=== PATIENT | male | born 1940 | race Caucasian/White ===

== ENCOUNTER 2021-10-12 15:41 | Inpatient (IN) ==
[2021-10-13] MEDS ORDERED: Ondansetron ODT 4 MG TAB.RAPDIS SL PRN (17:43)
[2021-10-13] MEDS: Acetaminophen 325 MG TABLET PO PRN (22:27)
[2021-10-13] MEDS: Melatonin 3 MG TABLET PO SCH (22:28)
[2021-10-13] MEDS: Metoprolol XL (24 HR) Succ 50 MG TAB.ER.24H PO SCH (22:29)
[2021-10-13] MEDS: Apixaban 5 MG TABLET PO SCH (22:33)
[2021-10-14 06:06] LABS: Basophils % 0.3 %; Eosinophils # 0.2 K/mcL (0.0-0.6); Eosinophils % 1.4 %; Hematocrit 33.4 % (37.5-50.1); Hemoglobin 10.8 g/dL (12.9-16.9); Immature Granulocytes % 2.4 % (0-4); Lymphocytes # 0.9 K/mcL (0.6-4.6); Lymphocytes % 7.6 %; Mean Corpuscular HGB Conc 32.3 g/dL (31.6-35.5); Mean Corpuscular Hemoglobin 30.7 pg (28.0-33.3); Mean Corpuscular Volume 94.9 fL (83.0-100.0); Mean Platelet Volume 8.9 fL (9.4-12.4); Monocytes # 0.7 K/mcL (0.0-1.3); Neutrophils # 9.7 K/mcL (1.6-8.9); Platelet Count 645 K/mcL (140-400); Red Blood Count 3.52 M/mcL (4.19-5.50); Red Cell Distribution Width 14.3 % (11.5-14.5); Segmented Neutrophils % 82.3 %; White Blood Count 11.8 K/mcL (4.3-11.1)
[2021-10-14 06:30] LABS: BUN/Creatinine Ratio 17 (6-26); Blood Urea Nitrogen 16 mg/dL (8-23); Calcium 9.4 mg/dL (8.6-10.3); Carbon Dioxide 29 mEq/L (23-29); Chloride 101 mEq/L (98-107); Glucose 115 mg/dL (70-105); Osmolality,Calculated 282 (280-300); Potassium 3.7 mEq/L (3.5-5.1); Sodium 135 mEq/L (136-145); eGFR For African Americans > 60 (> 60); eGFR For Non-African Americans > 60 (> 60)
[2021-10-14] MEDS: Acetaminophen 325 MG TABLET PO PRN ×2 (09:00→20:27)
[2021-10-14] MEDS: hydroCHLOROthiazide 25 MG TABLET PO SCH (09:00)
[2021-10-14] MEDS: Metoprolol XL (24 HR) Succ 50 MG TAB.ER.24H PO SCH ×2 (09:00→20:26)
[2021-10-14] MEDS: amLODIPine 5 MG TABLET PO SCH (09:00)
[2021-10-14] MEDS: Cholecalciferol (D-3) 1,000 UNIT (25MCG) TABLET PO SCH (09:01)
[2021-10-14] MEDS: Apixaban 5 MG TABLET PO SCH ×2 (09:01→20:26)
[2021-10-14] MEDS: *HR* Digoxin 0.125 MG TABLET PO SCH (09:01)
[2021-10-14] MEDS: polyethylene glycoL 3350 17 GM POWD.PACK PO SCH ×2 (09:02→18:38)
[2021-10-14] MEDS ORDERED: *HR* HYDROcodone/Acet 5/325 mg TABLET PO PRN ×2 (12:06→12:08)
[2021-10-14] MEDS: Melatonin 3 MG TABLET PO SCH (20:27)
[2021-10-15] MEDS: Metoprolol XL (24 HR) Succ 50 MG TAB.ER.24H PO SCH ×2 (07:59→19:30)
[2021-10-15] MEDS: amLODIPine 5 MG TABLET PO SCH (08:00)
[2021-10-15] MEDS: Apixaban 5 MG TABLET PO SCH ×2 (08:00→19:30)
[2021-10-15] MEDS: Cholecalciferol (D-3) 1,000 UNIT (25MCG) TABLET PO SCH (08:00)
[2021-10-15] MEDS: polyethylene glycoL 3350 17 GM POWD.PACK PO SCH (08:00)
[2021-10-15] MEDS: hydroCHLOROthiazide 25 MG TABLET PO SCH (08:00)
[2021-10-15] MEDS: *HR* Digoxin 0.125 MG TABLET PO SCH (08:00)
[2021-10-15] MEDS: Acetaminophen 325 MG TABLET PO PRN ×2 (14:41→21:38)
[2021-10-16 05:07] LABS: Basophils # 0.1 K/mcL (0.0-0.2); Basophils % 0.7 %; Eosinophils # 0.1 K/mcL (0.0-0.6); Eosinophils % 1.3 %; Hematocrit 33.6 % (37.5-50.1); Hemoglobin 10.8 g/dL (12.9-16.9); Lymphocytes % 9.6 %; Mean Corpuscular HGB Conc 32.1 g/dL (31.6-35.5); Mean Corpuscular Hemoglobin 30.3 pg (28.0-33.3); Mean Corpuscular Volume 94.1 fL (83.0-100.0); Mean Platelet Volume 8.9 fL (9.4-12.4); Monocytes # 0.8 K/mcL (0.0-1.3); Platelet Count 604 K/mcL (140-400); Red Blood Count 3.57 M/mcL (4.19-5.50); Red Cell Distribution Width 14.1 % (11.5-14.5); Segmented Neutrophils % 78.4 %; White Blood Count 10.2 K/mcL (4.3-11.1)
[2021-10-16 05:26] LABS: Alanine Aminotransferase 29 Units/L (7-52); Albumin 3.2 g/dL (3.5-5.7); Albumin/Globulin Ratio 1.2 (1.1-2.2); Alkaline Phosphatase 103 Units/L (34-104); Aspartate Amino Transferase 18 Units/L (13-39); BUN/Creatinine Ratio 18 (6-26); Bilirubin,Total 0.7 mg/dL (0.3-1.0); Blood Urea Nitrogen 15 mg/dL (8-23); Carbon Dioxide 31 mEq/L (23-29); Chloride 100 mEq/L (98-107); Globulin 2.7 g/dL (2.4-3.5); Glucose 112 mg/dL (70-105); Magnesium 1.7 mg/dL (1.6-2.6); Osmolality,Calculated 284 (280-300); Potassium 3.7 mEq/L (3.5-5.1); Sodium 136 mEq/L (136-145); Total Protein 5.9 g/dL (6.4-8.9); eGFR For African Americans > 60 (> 60); eGFR For Non-African Americans > 60 (> 60)
[2021-10-16] MEDS: Acetaminophen 325 MG TABLET PO PRN ×2 (05:27→19:42)
[2021-10-16] MEDS: Apixaban 5 MG TABLET PO SCH ×2 (08:22→19:41)
[2021-10-16] MEDS: amLODIPine 5 MG TABLET PO SCH (08:23)
[2021-10-16] MEDS: Cholecalciferol (D-3) 1,000 UNIT (25MCG) TABLET PO SCH (08:23)
[2021-10-16] MEDS: *HR* Digoxin 0.125 MG TABLET PO SCH (08:23)
[2021-10-16] MEDS: Metoprolol XL (24 HR) Succ 50 MG TAB.ER.24H PO SCH ×2 (08:23→19:42)
[2021-10-16] MEDS: polyethylene glycoL 3350 17 GM POWD.PACK PO SCH (08:24)
[2021-10-16] MEDS: hydroCHLOROthiazide 25 MG TABLET PO SCH (08:24)
[2021-10-17] MEDS: Metoprolol XL (24 HR) Succ 50 MG TAB.ER.24H PO SCH ×2 (08:02→21:02)
[2021-10-17] MEDS: hydroCHLOROthiazide 25 MG TABLET PO SCH (08:02)
[2021-10-17] MEDS: *HR* Digoxin 0.125 MG TABLET PO SCH (08:02)
[2021-10-17] MEDS: Apixaban 5 MG TABLET PO SCH ×2 (08:02→21:02)
[2021-10-17] MEDS: amLODIPine 5 MG TABLET PO SCH (08:02)
[2021-10-17] MEDS: Cholecalciferol (D-3) 1,000 UNIT (25MCG) TABLET PO SCH (08:02)
[2021-10-17] MEDS: Acetaminophen 325 MG TABLET PO PRN (08:03)
[2021-10-17] MEDS: polyethylene glycoL 3350 17 GM POWD.PACK PO SCH (08:06)
[2021-10-18] MEDS: *HR* Digoxin 0.125 MG TABLET PO SCH (07:59)
[2021-10-18] MEDS: Metoprolol XL (24 HR) Succ 50 MG TAB.ER.24H PO SCH ×2 (07:59→19:55)
[2021-10-18] MEDS: Cholecalciferol (D-3) 1,000 UNIT (25MCG) TABLET PO SCH (07:59)
[2021-10-18] MEDS: Apixaban 5 MG TABLET PO SCH ×2 (07:59→19:53)
[2021-10-18] MEDS: hydroCHLOROthiazide 25 MG TABLET PO SCH (07:59)
[2021-10-18] MEDS: Acetaminophen 325 MG TABLET PO PRN (08:00)
[2021-10-18] MEDS: polyethylene glycoL 3350 17 GM POWD.PACK PO SCH (08:50)
[2021-10-19] MEDS: Apixaban 5 MG TABLET PO SCH ×2 (08:01→20:21)
[2021-10-19] MEDS: *HR* Digoxin 0.125 MG TABLET PO SCH (08:02)
[2021-10-19] MEDS: Metoprolol XL (24 HR) Succ 50 MG TAB.ER.24H PO SCH ×2 (08:02→20:20)
[2021-10-19] MEDS: hydroCHLOROthiazide 25 MG TABLET PO SCH (08:02)
[2021-10-19] MEDS: Cholecalciferol (D-3) 1,000 UNIT (25MCG) TABLET PO SCH (08:02)
[2021-10-19] MEDS: polyethylene glycoL 3350 17 GM POWD.PACK PO SCH (09:11)
[2021-10-19] MEDS: Acetaminophen 325 MG TABLET PO PRN (20:24)
[2021-10-20] MEDS: Acetaminophen 325 MG TABLET PO PRN ×2 (05:26→10:27)
[2021-10-20] MEDS: Cholecalciferol (D-3) 1,000 UNIT (25MCG) TABLET PO SCH (08:05)
[2021-10-20] MEDS: Metoprolol XL (24 HR) Succ 50 MG TAB.ER.24H PO SCH ×2 (08:05→20:39)
[2021-10-20] MEDS: Apixaban 5 MG TABLET PO SCH ×2 (08:06→20:39)
[2021-10-20] MEDS: *HR* Digoxin 0.125 MG TABLET PO SCH (08:06)
[2021-10-20] MEDS: hydroCHLOROthiazide 25 MG TABLET PO SCH (08:06)
[2021-10-20] MEDS: polyethylene glycoL 3350 17 GM POWD.PACK PO SCH (08:06)
[2021-10-21 06:05] LABS: Basophils % 0.5 %; Eosinophils # 0.2 K/mcL (0.0-0.6); Eosinophils % 1.9 %; Hematocrit 32.9 % (37.5-50.1); Hemoglobin 10.8 g/dL (12.9-16.9); Immature Granulocytes % 0.9 % (0-4); Lymphocytes % 12.4 %; Mean Corpuscular HGB Conc 32.8 g/dL (31.6-35.5); Mean Corpuscular Hemoglobin 30.4 pg (28.0-33.3); Mean Corpuscular Volume 92.7 fL (83.0-100.0); Mean Platelet Volume 9.2 fL (9.4-12.4); Monocytes # 0.7 K/mcL (0.0-1.3); Monocytes % 9.3 %; Neutrophils # 5.9 K/mcL (1.6-8.9); Platelet Count 343 K/mcL (140-400); Red Blood Count 3.55 M/mcL (4.19-5.50); Red Cell Distribution Width 14.1 % (11.5-14.5); White Blood Count 7.8 K/mcL (4.3-11.1)
[2021-10-21 06:22] LABS: BUN/Creatinine Ratio 22 (6-26); Blood Urea Nitrogen 18 mg/dL (8-23); Calcium 8.9 mg/dL (8.6-10.3); Carbon Dioxide 31 mEq/L (23-29); Chloride 97 mEq/L (98-107); Glucose 110 mg/dL (70-105); Osmolality,Calculated 281 (280-300); Potassium 3.3 mEq/L (3.5-5.1); Sodium 134 mEq/L (136-145); eGFR For African Americans > 60 (> 60); eGFR For Non-African Americans > 60 (> 60)
[2021-10-21] MEDS: Cholecalciferol (D-3) 1,000 UNIT (25MCG) TABLET PO SCH (08:03)
[2021-10-21] MEDS: Metoprolol XL (24 HR) Succ 50 MG TAB.ER.24H PO SCH ×2 (08:03→20:43)
[2021-10-21] MEDS: polyethylene glycoL 3350 17 GM POWD.PACK PO SCH (08:04)
[2021-10-21] MEDS: hydroCHLOROthiazide 25 MG TABLET PO SCH (08:04)
[2021-10-21] MEDS: Apixaban 5 MG TABLET PO SCH ×2 (08:04→20:43)
[2021-10-21] MEDS: *HR* Digoxin 0.125 MG TABLET PO SCH (08:04)
[2021-10-21] MEDS: Acetaminophen 325 MG TABLET PO PRN (08:09)
[2021-10-22] MEDS: Acetaminophen 325 MG TABLET PO PRN ×2 (06:49→14:48)
[2021-10-22] MEDS: *HR* Digoxin 0.125 MG TABLET PO SCH (07:54)
[2021-10-22] MEDS: Metoprolol XL (24 HR) Succ 50 MG TAB.ER.24H PO SCH ×2 (07:54→20:18)
[2021-10-22] MEDS: Cholecalciferol (D-3) 1,000 UNIT (25MCG) TABLET PO SCH (07:54)
[2021-10-22] MEDS: Apixaban 5 MG TABLET PO SCH ×2 (07:55→20:18)
[2021-10-22] MEDS: hydroCHLOROthiazide 25 MG TABLET PO SCH (07:55)
[2021-10-22] MEDS: polyethylene glycoL 3350 17 GM POWD.PACK PO SCH (14:49)
[2021-10-22 20:25] VITALS: RESP 16
[2021-10-23] MEDS: Acetaminophen 325 MG TABLET PO PRN ×2 (02:53→15:20)
[2021-10-23 04:37] LABS: Basophils # 0.1 K/mcL (0.0-0.2); Basophils % 0.7 %; Eosinophils # 0.2 K/mcL (0.0-0.6); Eosinophils % 2.7 %; Hemoglobin 11.2 g/dL (12.9-16.9); Immature Granulocytes % 0.9 % (0-4); Lymphocytes # 0.8 K/mcL (0.6-4.6); Lymphocytes % 10.9 %; Mean Corpuscular HGB Conc 32.9 g/dL (31.6-35.5); Mean Corpuscular Hemoglobin 30.5 pg (28.0-33.3); Mean Corpuscular Volume 92.6 fL (83.0-100.0); Mean Platelet Volume 9.4 fL (9.4-12.4); Monocytes # 0.6 K/mcL (0.0-1.3); Monocytes % 8.2 %; Neutrophils # 5.7 K/mcL (1.6-8.9); Platelet Count 267 K/mcL (140-400); Red Blood Count 3.67 M/mcL (4.19-5.50); Red Cell Distribution Width 13.9 % (11.5-14.5); Segmented Neutrophils % 76.6 %; White Blood Count 7.4 K/mcL (4.3-11.1)
[2021-10-23 04:53] LABS: Alanine Aminotransferase 18 Units/L (7-52); Albumin 3.1 g/dL (3.5-5.7); Albumin/Globulin Ratio 1.3 (1.1-2.2); Alkaline Phosphatase 100 Units/L (34-104); Aspartate Amino Transferase 14 Units/L (13-39); BUN/Creatinine Ratio 19 (6-26); Bilirubin,Total 0.6 mg/dL (0.3-1.0); Blood Urea Nitrogen 16 mg/dL (8-23); Calcium 8.9 mg/dL (8.6-10.3); Carbon Dioxide 31 mEq/L (23-29); Chloride 100 mEq/L (98-107); Globulin 2.4 g/dL (2.4-3.5); Glucose 110 mg/dL (70-105); Magnesium 1.6 mg/dL (1.6-2.6); Osmolality,Calculated 288 (280-300); Potassium 3.5 mEq/L (3.5-5.1); Sodium 138 mEq/L (136-145); Total Protein 5.5 g/dL (6.4-8.9); eGFR For African Americans > 60 (> 60); eGFR For Non-African Americans > 60 (> 60)
[2021-10-23] MEDS: hydroCHLOROthiazide 25 MG TABLET PO SCH (08:05)
[2021-10-23] MEDS: Cholecalciferol (D-3) 1,000 UNIT (25MCG) TABLET PO SCH (08:05)
[2021-10-23] MEDS: *HR* Digoxin 0.125 MG TABLET PO SCH (08:05)
[2021-10-23] MEDS: Metoprolol XL (24 HR) Succ 50 MG TAB.ER.24H PO SCH ×2 (08:05→20:28)
[2021-10-23] MEDS: Apixaban 5 MG TABLET PO SCH ×2 (08:05→20:28)
[2021-10-23] MEDS: polyethylene glycoL 3350 17 GM POWD.PACK PO SCH (08:07)
[2021-10-23 19:03] VITALS: O2SAT 98
[2021-10-23] MEDS ORDERED: Melatonin 3 MG TABLET PO SCH (21:00)
[2021-10-24] MEDS: Acetaminophen 325 MG TABLET PO PRN (05:54)
[2021-10-24 07:06] VITALS: BP 145/72; PULSE 64; TEMP 97.8
[2021-10-24] MEDS: Apixaban 5 MG TABLET PO SCH (07:25)
[2021-10-24] MEDS: *HR* Digoxin 0.125 MG TABLET PO SCH (07:26)
[2021-10-24] MEDS: Cholecalciferol (D-3) 1,000 UNIT (25MCG) TABLET PO SCH (07:26)
[2021-10-24] MEDS: hydroCHLOROthiazide 25 MG TABLET PO SCH (07:26)
[2021-10-24] MEDS: Metoprolol XL (24 HR) Succ 50 MG TAB.ER.24H PO SCH (07:26)
[2021-10-24] MEDS: polyethylene glycoL 3350 17 GM POWD.PACK PO SCH (07:40)
== END 2021-10-24 13:25 | disposition home health service (06) ==
LOC: INPGRE 10-13 16:24
PROVIDERS: ADMIT Family Medicine; ATTEND Family Medicine